=== PATIENT | male | born 1945 | race Caucasian/White ===

== ENCOUNTER 2020-04-08 05:04 | Emergency (ER) | payer MEDICARE, MEDICAID ==
[~2020-04-08] VITALS: Ht 172.7 cm; Wt 95.5 kg
[~2020-04-08 05:04] MED LIST: INDO-12 PO
[2020-04-08 05:12] VITALS: BP 131/92
== END 2020-04-08 06:39 | disposition home or self-care (01) ==
LOC: ER 05:05
DX: M10.9 Gout, unspecified (principal); M25.562 Pain in left knee; Z88.5 Allergy status to narcotic agent; Z79.899 Other long term (current) drug therapy
CPT/HCPCS: 99281

== ENCOUNTER 2022-01-27 07:53 | Emergency (ER) | payer MEDICARE, MEDICAID ==
[~2022-01-27] VITALS: Ht 177.8 cm; Wt 95.5 kg
[2022-01-27 08:21] VITALS: BP 102/74
--- NOTE | 2022-01-27 10:45 | NUR ---
PT LEFT WITHOUT RECEIVING HIS COVID RESULTS OR DC PAPERWORK. PT IS COVID POSITIVE AND ATTEMPTED TO CALL PT AT PHONE # ON RECORD WITHOUT AN ANSWER OR ABLE TO LEAVE A MSG. CALLED THE PHONE # OF HIS EMERGENCY CONTACT AND LEFT A MSG TO HAVE PT CALL REGARDING HIS LAB RESULTS.
== END 2022-01-27 11:00 | disposition home or self-care (01) ==
LOC: ER 07:55
DX: U07.1 COVID-19 (principal); Z88.5 Allergy status to narcotic agent
CPT/HCPCS: 87635; 93005; 99284; C9803

== ENCOUNTER 2024-11-21 07:05 | Emergency (ER) | payer MEDICARE, MEDICAID ==
[~2024-11-21] VITALS: Ht 175.3 cm; Wt 79.4 kg
[2024-11-21 07:26] VITALS: TEMP 98.2
--- NOTE | 2024-11-21 08:59 | VASCULAR REPORT ---
EXAM: US Duplex Right Lower Extremity Veins CLINICAL INDICATION: Reason TECHNIQUE: Real-time duplex ultrasound scan of the right lower extremity veins integrating B-mode tw o-dimensional vascular structure, Doppler spectral analysis, color flow Doppler imaging and compressi on. COMPARISON: None FINDINGS: DEEP VEINS: Unremarkable. No DVT in the visualized common femoral, femoral, proximal deep femoral or popliteal veins. The veins demonstrate normal color flow, are normally compressible, with normal phasic flow and/or augmentation response. SUPERFICIAL VEINS: Unremarkable. No thrombus in the visualized great saphenous vein. SOFT TISSUES: No acute findings. No popliteal cyst. OTHER FINDINGS: . IMPRESSION: No DVT.
--- NOTE | 2024-11-21 09:56 | Physician Documentation ---
History of Present Illness ~ Chief Complaint: Leg Pain Stated Complaint: VEIN SWELLING Time Seen by MD: 07:34 Primary Medical Doctor: clinic Source: patient Mode of Arrival: POV Exam Limitations: no limitations HPI Chief Complaint: Tender right thigh Caveat: None Independent Historians: None History of Present Illness: Patient is a 79-year-old man who comes in complaining of mild pain over the inside right thigh over a large vein. The area is very small. This began a couple of days ago. Patient denies any chest pain or shortness for breath. Patient states that he has a lot of varicose veins in the right leg because of a distant history. Patient has no other medical problems. No other complaints. Patient denies any pain in the calf. Review of systems: All systems were reviewed and are negative except for what is indicated in the history of present illness. Past Medical History: History of traumatic head injury playing football Past Surgical History: None Social History: No tobacco use, no alcohol use, no drug use Medications: Reviewed as documented Nursing Notes Allergies: Reviewed as documented in Nursing Notes Tetanus witin 5 years: Yes Medication Reconciliation Allergies: Coded Allergies: codeine (Verified Allergy, Unknown, 11/21/24) Scheduled Indomethacin (Indomethacin), 1 CAP PO Q8H Past Medical History Past Medical History: Gout Past Surgical History: noncontributory Alcohol Use: Occasionally Drug Use: none Lives In: Home Review of Systems All Other Systems at this time: Reviewed and Negative ROS Patient denies any other acute symptoms other than above. All other systems are negative Physical Exam Vital Signs: RN Vital Signs have been reviewed: Yes, Temperature: 98.2, Source: Oral, Heart Rate: 57, Respiratory Rate: 18, BP: 144/78, Pulse Oximetry: 98, Weight: 79.400 Pulse Oximetry Reflects: adequate oxygenation Physical Exam General Appearance: No distress HEENT: Normal OP, moist oral mucosa, PERRL, EOMI Neck: supple, normal ROM, trachea midline Pulmonary: No respiratory distress, CTA, BS equal Cardiac: RRR, no murmur, rub or gallop, GI: nondistended, soft, nontender, normal bowel sounds, no guarding, no rebound Extremities: normal ROM, no swelling, many large varicose veins in the right leg. Patient has some tenderness that is focal over the common saphenous vein on the end side right thigh. No erythema. No fluctuance, no induration. Calves are soft and nontender. Skin: intact, dry, warm, no rashes Neuro: AAOx3, speech is clear, no focal motor weakness Psych: normal affect, good eye contact, no apparent hallucination, normal speech Progress Results/Orders Results/Orders Orders - PACHECO DOUGLAS MD Venous (11/21/24 07:34) Completed Orders - PACHECO DOUGLAS MD Venous (11/21/24 07:34) Vital Signs 11/21/24 11/21/24 07:26 10:02 Temp 98.2 Pulse 57 60 Resp 18 16 B/P (MAP) 144/78 137/80 Pulse Ox 98 99 Medical Decision Making Findings Differential diagnosis includes but is not limited to: DVT, superficial thrombophlebitis, varicose vein Vascular Doppler right lower extremity: Pain Impression: No DVT Emergency department course/medical decision-making: Patient presents with likely a early thrombophlebitis of the right common saphenous vein. Patient has many varicose veins. There was no evidence of infection. No evidence of DVT. Test results reviewed with the patient. Patient is instructed to apply warm compresses to the area. Patient is stable for discharge. Departure Time of Disposition: 09:54 Disposition: 01 HOME / SELF CARE / HOMELESS Impression: Primary Impression: Varicose veins of right lower extremity Qualified Codes: I83.11 - Varicose veins of right lower extremity with inflammation Discharge Instructions: Thrombophlebitis, Varicose Veins Additional Instructions: HE MAY HAVE SOME INFLAMMATION OF THAT SUPERFICIAL VEIN IN THE THIGH. APPLY WARM COMPRESSES. RETURN TO THE ER OR FOLLOW UP WITH YOUR PRIMARY CARE DOCTOR IF SYMPTOMS WORSEN. Education Educated: Patient Educated regarding: diagnosis, treatment Signature Scribe Signature: No scribe Attestation: No scribe PACHECO DOUGLAS MD November 21, 2024 09:56
[2024-11-21 10:02] VITALS: BP 137/80; PULSE 60; RESP 16; O2SAT 99
== END 2024-11-21 10:00 | disposition home or self-care (01) ==
LOC: ER 07:06
DX: I83.891 Varicose veins of right lower extremity with other complications (principal); Z88.5 Allergy status to narcotic agent
CPT/HCPCS: 93971; 99284